=== PATIENT | male | born 1995 | race Two or more races ===

== ENCOUNTER 2018-04-11 12:21 | Emergency (ER) | payer BC ==
[~2018-04-11] VITALS: Ht 170.2 cm; Wt 91.6 kg
[2018-04-11 13:54] LABS: BASOPHIL % 0.7 % (0-2); PLATELET COUNT 217 x10^3mcL (130-400); RED CELL DISTRIBUTION WIDTH 13.6 % (11.5-14.5)
[2018-04-11 14:15] LABS: CARBON DIOXIDE 28.7 mmol/L (21-32); CHLORIDE SERUM 105 mmol/L (98-107); GFR1 > 60 mL/min; GLUCOSE SERUM 92 mg/dL (74-106); POTASSIUM SERUM 3.9 mmol/L (3.5-5.1); SODIUM SERUM 143 mmol/L (136-145)
[2018-04-11 14:21] LABS: AMPHETAMINE QUAL UR NONE DETECTED (See below)
[2018-04-11 14:24] LABS: ALBUMIN 4.3 g/dL (3.4-5.0); ALKALINE PHOSPHATASE 61 U/L (46-116); ALT/SGPT 26 U/L (16-63); AST/SGOT 15 U/L (15-37); TOTAL PROTEIN, SERUM 7.4 g/dL (6.4-8.2)
[2018-04-11 15:14] VITALS: BP 107/65
== END 2018-04-11 15:14 | disposition home or self-care (01) ==
LOC: ED 12:21
PROVIDERS: Emergency Medicine
DX: G62.9 Polyneuropathy, unspecified (principal)
CPT/HCPCS: 36415; 83880; 85378